=== PATIENT | female | born 1950 | race Caucasian/White ===

== ENCOUNTER → 2017-05-08 | Outpatient (CLI) | payer MEDICARE, OTHER | LOC: GMAH 10:36 | PROVIDERS: ATTEND Family Medicine | DX: E78.2 Mixed hyperlipidemia (principal) ==

== ENCOUNTER → 2017-07-24 | Outpatient (CLI) | payer MEDICARE, OTHER ==
--- NOTE | 2017-07-24 11:29 | US ---
EXAM DESCRIPTION: Limited abdominal sonography CLINICAL HISTORY: 67 years Female, RUQ PAIN COMPARISON: None. TECHNIQUE: Limited Abdominal Ultrasound FINDINGS: PANCREAS: No cyst, mass, or inflammatory changes evident. LIVER: Normal size and appearance without cyst or mass. BILIARY: Normal gallbladder without stones, wall thickening, or edema. Normal bile ducts with the CBD measuring 7 mm, in the upper range of normal without intrahepatic dilation. RT. KIDNEY: The right kidney is 9.9 cm in length without hydronephrosis. Projecting partially exophytically from the mid right kidney is a hypoechoic but solid-appearing 2.9 cm mass. This may represent a dromedary hump but the possibility of a solid small renal neoplasm cannot be excluded. Further evaluation with a CT examination of the abdomen without and with contrast enhancement with attention to the right kidney is recommended VENA CAVA: Normal appearance of the vena cava and visualized portions of the retroperitoneum. IMPRESSION: 1. Abnormal right renal contour laterally involving the mid kidney suggestive of a 2.9 cm solid renal mass. Further evaluation with CT examination without and with contrast enhancement including arterial and venous imaging is recommended. 2. The remainder of the right upper quadrant sonogram is unremarkable with slight prominence of the common bile duct at 7 mm but without intrahepatic dilation or evidence of gallbladder or stone disease. Electronically signed by: Hector Uribe MD 07/24/2017 11:28 AM CDT
== END ==
LOC: US 09:00
PROVIDERS: ATTEND Family Medicine
DX: R10.11 Right upper quadrant pain (principal)

== ENCOUNTER 2017-09-02 08:00 | Day surgery (SDC) | payer MEDICARE, OTHER ==
[2017-09-02] MEDS: PROPARACAINE 0.5% OPHTH SOL 15 ML BTTL ONE ×2 (06:53→08:25)
[~2017-09-02 08:00] MED LIST: LIDOCAINE 1% MPF 5 ML VIAL ONE; MIDAZOLAM INJ 2 MG/2 ML VIAL ONE; TOBRAMYCIN SULF 0.3 % OPHT SOL 1 DROP LEFT_EYE ONE; TROP 1%/CYCLOPEN 1%/PHENYL 2% DROPS ONE
[2017-09-02] MEDS ORDERED: DEXAMETHASONE 0.1% OPHTH SOL 1 DROP LEFT_EYE ONE (08:42)
[2017-09-02] MEDS ORDERED: GENTAMICIN 0.3% OPHTH SOL 1 DROP LEFT_EYE ONE (08:42)
[2017-09-02] MEDS ORDERED: BRIMONIDINE 0.2% OPHTH DROPS LEFT_EYE ONE (08:43)
[2017-09-02 09:00] VITALS: BP 154/82; TEMP 98.4; O2SAT 96
== END 2017-09-02 09:45 | disposition home or self-care (01) ==
LOC: AMB 08:00
PROVIDERS: ATTEND Ophthalmology
DX: H25.12 Age-related nuclear cataract, left eye (principal); I10 Essential (primary) hypertension; E11.36 Type 2 diabetes mellitus with diabetic cataract; E66.9 Obesity, unspecified; G90.511 Complex regional pain syndrome I of right upper limb; Z88.8 Allergy status to other drugs, medicaments and biological substances; Z79.82 Long term (current) use of aspirin; Z79.899 Other long term (current) drug therapy
CPT/HCPCS: 66984; J2250

== ENCOUNTER → 2018-04-24 | Outpatient (CLI) | payer MEDICARE, OTHER ==
--- NOTE | 2018-04-24 17:04 | MRI ---
EXAM DESCRIPTION: Cervical Spine: MRI. CLINICAL HISTORY: RADICULOPATHY COMPARISON: MRI scan cervical spine without contrast 03/22/2015. TECHNIQUE: Multiplanar MRI, multiple sequences, non-contrast High-field. FINDINGS: C3-4: Right posterior 3 mm disc bulge, almost abutting the cord. Right facet arthrosis. Right uncinate spur. Right neural foraminal stenosis. Mild right neural paracentral canal narrowing. Left neural foramen is patent. C4-5: Bilateral facet arthrosis more right than left. Small bilateral uncinate spurs. Bilateral moderate neural foraminal narrowing. Tiny posterior midline bulge with mild canal narrowing. C5-6: Disc desiccation with disc space preserved. Posterior midline disc bulge 3 mm abutting the cord. Mild bilateral facet arthrosis. Small bilateral uncinate spurs. Moderate right neural foraminal narrowing and mild left neural foraminal narrowing. C6-7: Disc desiccation and minimal disc space loss. Posterior 2 mm broad-based disc bulge. Bilateral facets are unremarkable. Left Uncinate spur. Moderate left neural foraminal narrowing. Right neuroforamen patent. Anterior disc bulge and endplate ridging. T1-T2: Minimal disc desiccation and trace anterolisthesis. Tiny posterior broad-based bulge. Mild canal narrowing and bilateral foramina are patent. Normal signal in the remaining discs with no bulging. Disc spaces preserved. Canal and neural foramina are patent. Facets are unremarkable. No scoliosis. Spine is normally kyphotic. No cord compression or cord edema. Atlantoaxial joint is negative. Base of the cerebellar tonsils is above the foramen magnum. Paravertebral soft tissues are unremarkable. Vertebral bodies are not compressed at any level. Normal marrow signal in the remaining vertebral bodies and the posterior elements. IMPRESSION: 1. Disc desiccation at C6-7 with posterior bulge. Moderate left neural foraminal narrowing stable since the prior study. 2. C5-6 disc desiccation and posterior bulging but decreased in size since the prior study. No foraminal narrowing is stable. 3. Bilateral C4-5 neural foraminal narrowing is moderate has progressed on the left since the prior study. 4. Right neural foraminal stenosis at C3-4 has progressed since the prior study. Electronically signed by: Shar Rodriguez MD 04/24/2018 5:03 PM CDT
== END ==
LOC: MRI 10:59
PROVIDERS: ATTEND Anesthesiology Pain Medicine
DX: M50.122 Cervical disc disorder at C5-C6 level with radiculopathy (principal); M48.02 Spinal stenosis, cervical region

== ENCOUNTER 2018-06-12 10:23 | Inpatient (IN) | payer MEDICARE, OTHER ==
--- NOTE | 2018-06-12 10:57 | ED.PDOC ---
History of Present Illness - General Chief Complaint: Respiratory Problem Time Seen by Provider: 06/12/18 10:51 Source: patient Exam Limitations: no limitations - History of Present Illness Initial Comments: SHE HAS BEEN HAVING INTERMITTENT CHEST PAIN AND SHORTNESS OF BREATH FOR THE PAST [address] HARTLEY'S OFFICE YESTERDAY AND WAS GIVEN STEROIDS. SHE HAS ASTHMA, DEPRESSION, THYROID DISEASE, FIBROMYALGIA, DIABETES MELLITUS AMONG OTHERS. THE PAIN IS RATED AT A 8/10, NO RADIATION ASSOCIATED WITH SOB. SHE HAS BEEN USING HER HOME OXYGEN. HAS NO HX OF KNOWN CAD. Timing/Duration: other - ONSET FOUR WEEKS AGO. Severity: moderate Activities at Onset: none Possible Cause: frequent episodes, other - SEEMS TO WORSEN UPON WALKING Improving Factors: immobilization, rest Worsening Factors: nothing Associated Symptoms: chest pain Respiratory Risk Factors: no cause identified Allergies/Adverse Reactions: Allergies Clarithromycin [From Biaxin] Allergy (Mild, Verified 03/25/15 16:14) Other severe cramps Codeine Allergy (Mild, Verified 03/25/15 16:14) Hives Home Medications: Ambulatory Orders Aspirin [Aspirin Adult Low Dose] 81 mg PO DAILY 05/21/15 Atenolol [Tenormin] 25 mg PO DAILY 05/21/15 Fenofibrate Micronized 160 mg PO DAILY 05/21/15 Methadone HCl [Methadone] 10 mg PO DAILY 05/21/15 metFORMIN HCL [Glucophage] 500 mg PO BID 05/21/15 tiZANidine [Zanaflex] 2 mg PO QPM 05/21/15 Esomeprazole Magnesium [Nexium] 40 mg PO DAILY 06/12/18 Lorazepam [Ativan] 1 mg PO BID 06/12/18 Review of Systems - Review of Systems Constitutional: States: no symptoms reported EENTM: States: no symptoms reported Respiratory: States: short of breath Cardiology: States: chest pain Gastrointestinal/Abdominal: States: no symptoms reported Genitourinary: States: no symptoms reported Musculoskeletal: States: no symptoms reported, joint swelling Skin: States: no symptoms reported Neurological: States: no symptoms reported Endocrine: States: no symptoms reported Hematologic/Lymphatic: States: no symptoms reported Past Medical History (General) - Patient Medical History Hx Seizures: No Hx Stroke: No Hx Dementia: No Hx Asthma: Yes Hx of COPD: No Hx Cardiac Disorders: No Hx Congestive Heart Failure: No Hx Pacemaker: No Hx Hypertension: Yes Hx Thyroid Disease: Yes Hx Diabetes: Yes Hx Gastroesophageal Reflux: No Hx Renal Disease: No Hx Cancer: No Hx of HIV: No Hx Hepatitis C: No Hx MRSA: No - Vaccination History Hx Tetanus, Diphtheria Vaccination: Yes Hx Influenza Vaccination: Yes Hx Pneumococcal Vaccination: Yes Immunizations Up to Date: Yes - Social History Hx Tobacco Use: No Hx Chewing Tobacco Use: No Hx Alcohol Use: No Hx Substance Use: No Hx Substance Use Treatment: No Hx Depression: Yes Feels Threatened In Home Enviroment: No Feels Threatened In a Relationship: No Hx Physical Abuse: No Hx Emotional Abuse: No Hx Suspected Abuse: No - Activities of Daily Living Hospice Agency (if applicable):: None - Female History Patient is a Female of Child Bearing Age (10 -59 yrs old): No Patient : No Family Medical History - Family History Mother Family History: No Known Living Status: Still Living Physical Exam - Physical Exam General Appearance: Alert, Restless, Well Hydrated, Well Nourished Eyes, Ears, Nose, Throat Exam: PERRL/EOMI, normal ENT inspection, TMs normal, pharynx normal Neck: non-tender, full range of motion, supple, normal inspection Respiratory: chest non-tender, lungs clear, normal breath sounds, no respiratory distress Cardiovascular/Chest: normal peripheral pulses, regular rate, rhythm, no edema, no gallop, no JVD Gastrointestinal/Abdominal: normal bowel sounds, non tender, soft, no organomegaly, no pulsatile mass Rectal Exam: deferred Extremity: normal range of motion Neurologic: no motor/sensory deficits, alert Skin Exam: normal color Lymphatic: no adenopathy Progress - Progress Progress: 06/12/18 13:51 TROPONIN I X 2 ARE LESS THEN 0.02. I HAVE DISCUSSED THE CASE WITH ZANA COLORADO RN AND WILL PLACE IN OBSERVATION FOR CHEST PAIN. - Results/Orders Results/Orders: HR OF 65, ME INTERVAL OF 150, QRS OF 94, QT INTERVAL OF 422, AXIS OF 59 DEGREES. IMPRESSION; SINUS RHYTHM, THERE ARE SOME INVERTED T WAVES ON THE PRECORDIAL THERESA-LATERALLEADS SUSPICIOUS FOR ANTEROLATERAL ISCHEMIA. THE TRACING IS COMPARED TO ONE DATED 03/25/2015. AT THAT TIME THE PATIENT WAS ON A SINUS RYHTM AT A RATE OF 78. WHEN [id number] NOW THERE A SOME NEW CHANGES THAT WERE NOT THERE. THE INVERTED T WAVES ON THE THERESA-LATERAL LEADS. Departure - Departure Clinical Impression: Chest pain in adult Diabetes mellitus Qualifiers: Diabetes mellitus type: type 2 Diabetes mellitus complication status: without complication Time of Disposition: 13:53 Disposition: Admit Patient Condition: Good Referrals: Enoc Hartley MD [Primary Care Provider] - 1-2 Weeks Home Medications: Ambulatory Orders Aspirin [Aspirin Adult Low Dose] 81 mg PO DAILY 05/21/15 Atenolol [Tenormin] 25 mg PO DAILY 05/21/15 Fenofibrate Micronized 160 mg PO DAILY 05/21/15 Methadone HCl [Methadone] 10 mg PO DAILY 05/21/15 metFORMIN HCL [Glucophage] 500 mg PO BID 05/21/15 tiZANidine [Zanaflex] 2 mg PO QPM 05/21/15 Esomeprazole Magnesium [Nexium] 40 mg PO DAILY 06/12/18 Lorazepam [Ativan] 1 mg PO BID 06/12/18 Decision To Admit - Decistion To Admit Decision to Admit Reason: Admit from ER Decision to Admit Date: 06/12/18 Decision to Admit Time: 13:52
--- NOTE | 2018-06-12 11:32 | RAD ---
Study: Single Frontal View of the Chest. Indication:CHEST PAIN Comparison: March 25, 2015. Impression: Cardiomegaly without failure. Lungs clear. No acute osseous abnormality. Electronically signed by: Fausto Pratt MD 06/12/2018 11:31 AM CDT
--- NOTE | 2018-06-12 14:48 | HP ---
SUPERVISING PHYSICIAN: Ervin Moralez M.D. CHIEF COMPLAINT: Chest pain and shortness of breath. HISTORY OF PRESENT ILLNESS: This is a 68 year-old female patient who presented to the Emergency Room for shortness of breath and some mid sternal intermittent chest pain. She has had it going on for [address] Hartley yesterday for an exacerbation of her asthma and was given a steroid shot as well as a Medrol Dosepak. She took her medication as prescribed and this morning the shortness of breath was so bad that she started having chest pain with it and she could not get out of bed, so she called EMS. She also was quite shaky but she did say she took about 8 puffs on her Albuterol inhaler. In the Emergency Room, her lab was done and she had some mildly elevated WBC of 12,000 with hemoglobin 11.3 and hematocrit 35.2. She had a left shift on her differential. Electrolytes are basically within normal limits with the exception of her glucose was high at 143. She does have a history of diabetes mellitus type 2. Initial 2 troponins were negative. Liver enzymes were also within normal limits. Chest x-ray showed cardiomegaly without failure with lungs that are clear and no acute osseous abnormality. Vital signs showed her to be afebrile and oxygen saturations were 97% on room air. I was called for hospital admission. PAST MEDICAL HISTORY: 1. Diabetes mellitus type 2. 2. Anxiety. 3. Asthma, unspecified. 4. Gastroesophageal reflux disease. 5. Hypertriglyceridemia. 6. Fibromyalgia. 7. Tachycardia. 8. Reflex sympathetic dystrophy. 9. Thyroid disease. PAST SURGICAL HISTORY: 1. Appendectomy. 2. Hysterectomy. 3. Back surgery times 2. 4. Rectocele and cystocele. 5. Tonsillectomy. OUTPATIENT MEDICATIONS: Per the EMR and awaiting verification. ALLERGIES: BIAXIN AND CODEINE. SOCIAL HISTORY: She smoked for approximately 6 months in the '70s. She denies any ETOH or illicit drug use. REVIEW OF SYSTEMS: Negative except as per History of Present Illness. PHYSICAL EXAMINATION: VITAL SIGNS: Temperature 97.8, heart rate 70, blood pressure 156/68, respiratory rate 20, O2 sat is 99% on room air. GENERAL: This is a 68 year-old female patient who is lying in her hospital bed. She is in no acute distress. HEENT: Normocephalic and atraumatic. Pupils are equal and reactive. Oropharynx is clear. NECK: Supple without mass. RESPIRATORY: Essentially clear to auscultation bilaterally. CHEST: There is equal rise and fall of the chest with inspiration and expiration. GASTROINTESTINAL: Abdomen is soft, nondistended, non-tender. Bowel sounds are positive. EXTREMITIES: No cyanosis, clubbing or edema. SKIN: Warm and dry. NEUROLOGIC: She is awake, alert and oriented times three. LABORATORY: Labs and films are as per the history of present illness. ASSESSMENT: 1. Chest pain. 2. Shortness of breath. 3. Exacerbation of asthma. 4. Anxiety. 5. Reflex sympathetic dystrophy. 6. Diabetes mellitus type 2. PLAN: We will place the patient in Observation. I will give her some Solu- Medrol IV and taper it down, and start her Medrol Dosepak tomorrow. I have initiated the chest pain guidelines. I think it most likely is associated with her exacerbation of her asthma, but we will rule out any cardiac involvement. I will restart her home medications. Will continue to monitor her closely and follow as needed. Dr. Moralez is the collaborating physician available for consultation. #[id number] [facility]
[2018-06-12] MEDS ORDERED: SODIUM CHLORIDE 0.9% (FLUSH) 10 ML SYG IV PRN (15:47)
[2018-06-12] MEDS ORDERED: NITROGLYCERIN 0.4 MG 25 EA TAB SL PRN (15:47)
[2018-06-12] MEDS ORDERED: MORPHINE SULFATE INJ 10 MG/ML VIAL IV PRN (15:47)
[2018-06-12] MEDS ORDERED: DEXTROSE 50% 25 GM/50 ML SYG IV PRN (15:51)
[2018-06-12] MEDS ORDERED: GLUCAGON INJ 1 MG VIAL SUBCU PRN (15:51)
[2018-06-12] MEDS ORDERED: IV SET AND CAP CHANGE INJ INJ SCH (16:00)
[2018-06-12] MEDS: INSULIN LISPRO 100 UNITS/ML PEN SUBCU SCH ×2 (17:09→20:59)
[2018-06-12] MEDS ORDERED: LORazepam 1 MG TAB PO PRN (17:28)
[2018-06-12] MEDS ORDERED: methylPREDNISolone SODIUM SUC 125 MG/2 ML VIAL IV ONE (17:32)
[2018-06-12] MEDS ORDERED: LEVALBUTEROL NEBS 1.25 MG/3 ML VIAL NEB PRN (17:37)
[2018-06-12] MEDS: ACETAMINOPHEN 325 MG TAB PO PRN (18:03)
[2018-06-12] MEDS: METHADONE HCL 10 MG TAB PO SCH (20:23)
[2018-06-12] MEDS: LEVALBUTEROL NEBS 1.25 MG/3 ML VIAL NEB SCH (20:25)
[2018-06-12] MEDS: metFORMIN HCL 500 MG TAB PO SCH (20:25)
[2018-06-12] MEDS: tiZANidine 4 MG TAB PO SCH (20:25)
[2018-06-12] MEDS: ENOXAPARIN SODIUM 40 MG/0.4 ML SYG SUBCU SCH (20:25)
[2018-06-12] MEDS: SODIUM CHLORIDE 0.9% (FLUSH) 10 ML SYG IV SCH (20:26)
[2018-06-13] MEDS: PANTOPRAZOLE SODIUM TAB 40 MG PO SCH (06:12)
[2018-06-13] MEDS: INSULIN LISPRO 100 UNITS/ML PEN SUBCU SCH ×4 (07:47→20:54)
[2018-06-13] MEDS: LEVALBUTEROL NEBS 1.25 MG/3 ML VIAL NEB SCH ×4 (08:11→19:58)
[2018-06-13] MEDS ORDERED: DULoxetine HCL 30 MG CAP PO ONE (08:58)
[2018-06-13] MEDS ORDERED: FENOFIBRATE MICRONIZED 160 MG PO SCH (09:00)
[2018-06-13] MEDS ORDERED: NON-FORMULARY MEDICATION 1 EA MIS (Solifenacin Succinate [Vesicare] 10 MG) PO SCH (09:00)
[2018-06-13] MEDS ORDERED: NON-FORMULARY MEDICATION 1 EA MIS (Potassium Chloride [Micro-K] 8 MEQ) PO SCH (09:00)
[2018-06-13] MEDS ORDERED: ASPIRIN TABLET 325 MG TAB PO SCH (09:00)
[2018-06-13] MEDS ORDERED: NON-FORMULARY MEDICATION 1 EA MIS (Duloxetine Hcl [Cymbalta] 60 MG) PO SCH (09:00)
[2018-06-13] MEDS ORDERED: METHADONE HCL 10 MG TAB PO SCH (09:00)
[2018-06-13] MEDS ORDERED: POTASSIUM CHLORIDE 8 MEQ TAB ONE (09:00)
[2018-06-13] MEDS: predniSONE 20 MG TAB PO SCH (09:03)
[2018-06-13] MEDS: tiZANidine 4 MG TAB PO SCH ×3 (09:04→15:13)
[2018-06-13] MEDS: FLUoxetine HCL 20 MG CAP PO SCH (09:04)
[2018-06-13] MEDS: ATENOLOL 25 MG TAB PO SCH (09:04)
[2018-06-13] MEDS: ACETAMINOPHEN 325 MG TAB PO PRN ×2 (09:05→22:00)
[2018-06-13] MEDS: ASPIRIN (ENTERIC COATED) 81 MG TAB PO SCH (09:06)
[2018-06-13] MEDS: SODIUM CHLORIDE 0.9% (FLUSH) 10 ML SYG IV SCH ×2 (09:08→20:54)
--- NOTE | 2018-06-13 09:25 | RAD ---
EXAM DESCRIPTION: Chest,1 View CLINICAL HISTORY: 68 years Female, sob COMPARISON: 06/12/2018 IMPRESSION: The heart is enlarged, without failure. Increasing opacity in the left lung base, consistent with developing atelectasis or pneumonia. Continued follow-up to confirm resolution recommended. Questionable small left pleural effusion. The right lung is clear. No pneumothorax. No acute osseous abnormality. Electronically signed by: Dante Mckay MD 06/13/2018 9:24 AM CDT
[2018-06-13] MEDS ORDERED: LORazepam 1 MG TAB PO PRN (10:13)
[2018-06-13] MEDS: metFORMIN HCL 500 MG TAB PO SCH ×2 (10:24→20:55)
[2018-06-13] MEDS ORDERED: levoFLOXacin 500MG IV 500 MG in PREMIX BAG 1 BAG IVPB SCH (11:00)
--- NOTE | 2018-06-13 11:03 | PN ---
SUPERVISING PHYSICIAN: Ervin Moralez MD DATE: 06/13/18 SUBJECTIVE: Earlier this morning, the patient complained of chest pain. The pain was 5/10. There was no diaphoresis. Vital signs were stable. Cardiac enzymes were done and EKG was done as well as chest x-ray. The cardiac enzymes were negative. The EKG was unchanged. Her chest x-ray does show an increasing opacity in the left lung base that is consistent with atelectasis or pneumonia. That is different from yesterday's chest x-ray. I discussed the findings with her and explained that we would be treating her pneumonia, but that her cardiac enzymes were negative. She continues complaints of some mild shortness of breath, otherwise no cough, nausea or vomiting. She is fairly lethargic from having her Ativan and Zanaflex earlier. OBJECTIVE: VITAL SIGNS: Temperature 98. Pulse 60. Blood pressure 155/69. Respiratory rate 20. O2 saturation 98% on room air. RESPIRATORY: Essentially clear to auscultation bilaterally. It is slightly diminished at the bases. CARDIAC: Regular rate and rhythm. GASTROINTESTINAL: Abdomen is soft, nondistended, nontender. Bowel sounds are positive. EXTREMITIES: No cyanosis, clubbing or edema. NEUROLOGIC: She is lethargic. She awakens fairly easily. She answers simple yes/no questions appropriately. LABORATORY: WBC is improved to 10.4 with stable hemoglobin and hematocrit of 11.2 and 33.8. Cardiac enzymes were negative. Electrolytes were basically within normal limits. Chest x-ray shows increasing opacity in the left lung base consistent with developing atelectasis or pneumonia. Continue followup to confirm resolution recommended. The right lung is clear. All other labs and films have been reviewed via the EMR. ASSESSMENT: 1. Left lower lobe pneumonia, failed outpatient treatment. She had been treated in Dr. Hartley's office for an exacerbation of asthma and chest x-ray shows left lower lobe pneumonia. 2. Chest pain with negative diabetic ketoacidosis enzymes. 3. Exacerbation of asthma, presently on steroid therapy. 4. Anxiety. 5. Reflex sympathetic dystrophy. 6. Diabetes mellitus, type 2. PLAN: The patient will be changed to full admission. I have initiated the pneumonia guidelines and we will start her on Levaquin. We will also do aggressive pulmonary hygiene. I will increase her breathing treatments. She is on oral prednisone at this time and we will continue with that if she has no wheezing. I have ordered AM lab as well as chest x-ray and we will continue to monitor the patient closely and follow as needed. Dr. Moralez is the collaborating physician and available for consultation. #[id number] [facility]
[2018-06-13] MEDS: levoFLOXacin 750MG IV 750 MG in PREMIX BAG 1 BAG IVPB SCH (11:48)
[2018-06-13] MEDS: METHADONE HCL 10 MG TAB PO SCH (20:55)
[2018-06-13] MEDS: ENOXAPARIN SODIUM 40 MG/0.4 ML SYG SUBCU SCH (20:55)
[2018-06-13] MEDS ORDERED: tiZANidine 4 MG TAB PO SCH (21:00)
[2018-06-14] MEDS: PANTOPRAZOLE SODIUM TAB 40 MG PO SCH (06:08)
--- NOTE | 2018-06-14 08:16 | RAD ---
PROCEDURE: Chest,2 Views CLINICAL HISTORY: Pneumonia INDICATION: Same as above COMPARISON: 06/13/2018 TECHNIQUE: PA and and lateral chest radiographs were obtained. FINDINGS: There is no significant interval change in the left basilar infiltrate/atelectasis in the expected location of the lingula of the left lung There are no pneumothoraces or pleural effusions. The pulmonary vascularity is normal The cardiomediastinal silhouette is stable. IMPRESSION: There is no significant interval change in the left basilar infiltrate/atelectasis in the expected location of the lingula of the left lung Electronically signed by: Ruslan Solis MD 06/14/2018 8:15 AM CDT Workstation: [id number]
[2018-06-14] MEDS: INSULIN LISPRO 100 UNITS/ML PEN SUBCU SCH ×2 (08:23→11:28)
[2018-06-14] MEDS: LEVALBUTEROL NEBS 1.25 MG/3 ML VIAL NEB SCH ×2 (08:36→11:48)
[2018-06-14] MEDS: ASPIRIN (ENTERIC COATED) 81 MG TAB PO SCH (08:52)
[2018-06-14] MEDS: FLUoxetine HCL 20 MG CAP PO SCH (08:52)
[2018-06-14] MEDS: metFORMIN HCL 500 MG TAB PO SCH ×2 (08:52→09:37)
[2018-06-14] MEDS: ATENOLOL 25 MG TAB PO SCH (08:53)
[2018-06-14] MEDS: SODIUM CHLORIDE 0.9% (FLUSH) 10 ML SYG IV SCH (08:53)
[2018-06-14] MEDS: predniSONE 20 MG TAB PO SCH (08:53)
[2018-06-14] MEDS ORDERED: DULoxetine HCL 30 MG CAP PO SCH ×2 (09:00→21:00)
[2018-06-14] MEDS ORDERED: POTASSIUM CHLORIDE 8 MEQ TAB PO SCH ×2 (09:00→21:00)
[2018-06-14 09:59] VITALS: BP 159/70; TEMP 97.9
[2018-06-14] MEDS: levoFLOXacin 750MG IV 750 MG in PREMIX BAG 1 BAG IVPB SCH (11:02)
[2018-06-14 12:22] VITALS: O2SAT 100
[2018-06-14] MEDS ORDERED: NON-FORMULARY MEDICATION 1 EA MIS (Solifenacin Succinate [Vesicare] 10 MG) PO SCH (21:00)
[2018-06-14] MEDS ORDERED: FENOFIBRATE MICRONIZED 160 MG PO SCH (21:00)
--- NOTE | 2018-06-15 21:52 | DS ---
SUPERVISING PHYSICIAN: Ervin Moralez M.D. ADMISSION DIAGNOSIS: 1. Chest pain. 2. Shortness of breath. 3. Exacerbation of asthma. 4. Anxiety. 5. Reflex sympathetic dystrophy. 6. Diabetes mellitus type 2. DISCHARGE DIAGNOSIS: 1. Left lower lobe pneumonia failed outpatient treatment with exacerbation of asthma and chest x-ray showing left lower lobe pneumonia. 2. Chest pain with negative cardiac enzymes and normal EKGs with no signs of acute myocardial infarction. 3. Exacerbation of asthma showing improvement with steroids. 4. Anxiety. 5. Reflex sympathetic dystrophy. 6. Diabetes mellitus type 2. REASON FOR HOSPITALIZATION: Ms. Juares is a 68 year-old female that presented to the Emergency Room on 06/12/18 complaining of shortness of breath with some mild sternal intermittent chest pain. She noted that the pain had been going on for 4 weeks. She had recently seen Dr. Hartley on 06/11/18 for exacerbation of her asthma and was given a steroid shot as well as a Medrol Dosepak. She took her medications as prescribed and on the morning of admission was having shortness of breath so bad that she started having chest pains with it and could not get out of bed. At that time, she called EMS. She was also quite shaky but did say she took about 8 puffs of the Albuterol inhaler. In the Emergency Room, her labs were completed and showed a mildly elevated white count of 12,000 with hemoglobin 11, hematocrit 35.2. There was a noted left shift of differential. She has a history of diabetes mellitus type 2 and her initial troponins were negative. Liver enzymes were also within normal limits. Chest x-ray showed cardiomegaly without failure. Lungs were essentially clear with no acute osseous abnormalities. She was afebrile but showing saturations 97% on room air. At that time, she was admitted to the hospital for concerns for acute exacerbation of asthma and COPD having failed outpatient treatment plan with concerns of developing community acquired pneumonia. LABORATORY STUDIES: White count on admission was 12,000, at discharge was 11, 500. Hemoglobin was stable at 1.5, hematocrit 35.7. RBC indices indicated a microcytic hypochromic presentation with a platelet count of 267,000. Differential did show a left shift on admission and it was resolving prior to discharge. Chemistries on admission showed normal electrolytes with BUN 16, creatinine 0.58, calcium 9.5. Liver functions were within normal limits. She had 3 sets of troponin that were all less than 0.02. Normal CK at 102. Lipid panel showed to be within normal limits with triglycerides 142, cholesterol 149 , LDL 93, HDL 37. At discharge, electrolytes were within normal limits. BUN was stable at 15, creatinine 0.59. Blood sugars had been stable between 99 and 244. Again, she had 2 more sets of troponins that were less than 0.02. MICROBIOLOGY: No microbiology specimens were submitted. RADIOLOGY: Initially in the Emergency Department she had a chest x-ray that showed a single view chest per radiology interpretation cardiomegaly without failure. Lungs were clear. No acute osseous abnormalities. She had multiple chest x-rays repeated and on the morning of discharge chest x-ray 2 view chest was showing no significant interval changes and left basilar infiltrate/ atelectasis in the expected location of the lingula of the left lung. HOSPITAL COURSE: Ms. Juares was admitted to the hospital as noted on 06/12/18 for an exacerbation of COPD and asthma with chest pains. Her chest pain workup was negative. This had resolved and was noted that it was reproducible with deep inspiratory effort which was felt to be secondary to her pneumonia. She was found to have a left lower lobe pneumonia and was started on steroids, Levaquin and Xopenex breathing treatments along with pulmonary hygiene. She showed good improvement and on the morning of discharge was showing clinically stable enough to continue with outpatient management with oral medications. PLAN: Ms. Juares was discharged on 06/14/18 with instructions to followup with Dr. Hartley next week as scheduled on 06/18/18 at 10:45. She was to resume her home medications as instructed and take new medications as directed. Her diet at discharge was diabetic. Activity was increase as tolerated. She was told to return to the hospital should any concerning symptoms. Medications at discharge included: 1. Levaquin 500 mg daily for 7 days. 2. Medrol Dosepak 4 mg daily for 6 days, #21. Condition at discharge was stable and improved. #[id number] [facility]
== END 2018-06-14 13:39 | disposition home or self-care (01) | DRG 194 ==
LOC: ER 10:23 → MS 14:47 → OBSVTOIN 06-13 10:34
PROVIDERS: ADMIT Nurse Practitioner Acute Care; ATTEND Nurse Practitioner Family
DX: J18.9 Pneumonia, unspecified organism (principal); G90.50 Complex regional pain syndrome I, unspecified; J45.909 Unspecified asthma, uncomplicated; F41.9 Anxiety disorder, unspecified; E11.9 Type 2 diabetes mellitus without complications; K21.9 Gastro-esophageal reflux disease without esophagitis; E78.1 Pure hyperglyceridemia; M79.7 Fibromyalgia; R07.9 Chest pain, unspecified; F32.9 Major depressive disorder, single episode, unspecified; E07.9 Disorder of thyroid, unspecified; Z88.1 Allergy status to other antibiotic agents; Z88.5 Allergy status to narcotic agent; Z87.891 Personal history of nicotine dependence; Z79.891 Long term (current) use of opiate analgesic; Z79.82 Long term (current) use of aspirin; Z79.84 Long term (current) use of oral hypoglycemic drugs; Z79.899 Other long term (current) drug therapy

== ENCOUNTER 2018-09-25 05:35 | Day surgery (SDC) | payer MEDICARE, OTHER ==
--- NOTE | 2018-09-23 12:33 | RAD ---
EXAM DESCRIPTION: XR CHEST 2 VIEWS CLINICAL HISTORY: Preoperative respiratory evaluation. Z01.811. COMPARISON: 06/14/2018 TECHNIQUE: PA/lateral FINDINGS: Heart size is normal. Similar appearance of left basilar opacity, atelectasis or interstitial infiltrate. No dense alveolar consolidation. The lungs are otherwise clear. No acute bony abnormality. IMPRESSION: No acute cardiopulmonary process. Similar appearance of the left base interstitial infiltrate/scar Electronically signed by: Hector Welch MD 09/23/2018 12:32 PM CDT
[2018-09-25] MEDS ORDERED: raNITIdine HCL INJ 25 MG/ML VIAL ONE (07:00)
[2018-09-25] MEDS ORDERED: DEXAMETHASONE INJ 10 MG/ML VIAL ONE (07:00)
[2018-09-25] MEDS ORDERED: METOCLOPRAMIDE HCL INJ 10 MG/2 ML VIAL ONE (07:00)
[2018-09-25] MEDS ORDERED: PROPOFOL 200 MG/20 ML VIAL IV ONE (07:00)
[2018-09-25] MEDS ORDERED: LIDOCAINE 1% 10 ML VIAL INJ ONE (07:00)
[2018-09-25] MEDS ORDERED: LACTATED RINGERS 1,000 ML ONE ×2 (07:04→10:56)
[2018-09-25] MEDS ORDERED: SODIUM CHL 0.9% 100ML MINI-BAG 100 ML IVPB ONE (07:05)
[2018-09-25] MEDS ORDERED: ceFAZolin SODIUM 1 GM VIAL ONE (07:05)
[2018-09-25] MEDS: LACTATED RINGERS 1,000 ML BAG IV ONE ×2 (07:45→10:58)
[2018-09-25] MEDS ORDERED: fentaNYL CITRATE INJ 50 MCG/ML AMP ONE (08:09)
[2018-09-25] MEDS ORDERED: MIDAZOLAM INJ 2 MG/2 ML VIAL ONE ×2 (08:09→08:18)
[2018-09-25] MEDS ORDERED: BUPIVACAINE 0.25% W/EPI 50 ML VIAL INJ ONE (08:10)
[2018-09-25] MEDS ORDERED: ACETAMINOPHEN IV 1000MG 100 ML ONE (08:20)
[2018-09-25] MEDS ORDERED: KETAMINE HCL 100 MG/ML VIAL ONE (08:35)
--- NOTE | 2018-09-25 10:28 | OP ---
DATE OF PROCEDURE: 09/25/18 PREOPERATIVE DIAGNOSIS: 1. Umbilical hernia POSTOPERATIVE DIAGNOSIS: 1. Umbilical hernia. PROCEDURE: 1. Repair of umbilical hernia with [place] mesh graft. SURGEON: Carlos Rivers MD. PACKAGING MATERIALS INSPECTOR: None. ANESTHESIA: General laryngeal mask anesthesia and local infiltration of 0.25% Marcaine with epinephrine. INDICATION: The patient is a 68-year-old female with a tender mass at her umbilicus which is reducible. The patient was brought to the Surgical Suite today for repair of same after the risks, benefits and alternatives to the procedure were discussed and accepted. FINDINGS: She has omentum which was reducible from the hernia. The defect was approximately 1.5 by 1 cm. No other pathology was identified. PROCEDURE: After adequate general laryngeal mask anesthesia was obtained, the patient was prepped and draped in the usual sterile manner. A surgical time- out was then taken. At this point, an infraumbilical incision was made, first with infiltration of anesthesia and then with a sharp knife. Dissection was carried down through the skin and subcutaneous tissue to the midline fascia using electrocautery and then blunt dissection. When this was done, the hernia was identified. It was dissected free circumferentially using electrocautery and blunt dissection. It was then incised at its base inferiorly and then dissected circumferentially using electrocautery and blunt dissection. When this was done, the omentum was dissected free and the hernia sac was dissected from the umbilicus and reduced below the floor of the canal. Hemostasis was obtained with electrocautery. The wound was irrigated with saline. At this point, the defect was closed with 3 [id number] sutures of #1 PDS which were placed sequentially with careful attention not to catch the underlying tissue or the peritoneum. These were placed sequentially and then tightened and tied sequentially. When this was done, again, the wound was irrigated with saline. Hemostasis was noted to be adequate. The subcutaneous tissue above, below and lateral to the incision was dissected free until it was at least 2 cm of exposed fascia. At this point, the mesh patch approximately 8 by 5 cm and rectangularly shaped was introduced over the repair and sutured circumferentially with interrupted 2-0 Prolene and 2-0 Vicryl sutures. When this was done, again, the wound was irrigated with saline. Hemostasis was noted to be adequate. The umbilicus was then again sutured to the floor and the mesh with a single [id number] suture of 2-0 Prolene. The subcutaneous tissues were reapproximated with interrupted 3-0 Vicryl sutures. The skin edges were approximated with skin stapler. The subcutaneous tissue were re- infiltrated with local anesthesia. Sterile pressure dressing was applied. An abdominal binder was applied. The patient was awakened and taken to the Recovery Room in good and stable condition. Estimated blood loss was less than 50 mL. All sponge, needle and instrument counts were correct. #[id number] [facility]
[2018-09-25] MEDS: HYDROmorphone HCL INJ 2 MG/ML VIAL ONE ×2 (10:46→11:00)
[2018-09-25 11:32] VITALS: O2SAT 95
[2018-09-25 13:46] VITALS: BP 162/75; TEMP 96.7
== END 2018-09-25 12:10 | disposition home or self-care (01) ==
LOC: AMB 05:35
PROVIDERS: ATTEND Surgery
DX: K42.9 Umbilical hernia without obstruction or gangrene (principal); E11.9 Type 2 diabetes mellitus without complications; F41.9 Anxiety disorder, unspecified; J45.909 Unspecified asthma, uncomplicated; I25.10 Atherosclerotic heart disease of native coronary artery without angina pectoris; I10 Essential (primary) hypertension; K21.9 Gastro-esophageal reflux disease without esophagitis; E78.2 Mixed hyperlipidemia; G89.29 Other chronic pain; E66.9 Obesity, unspecified; Z87.891 Personal history of nicotine dependence; Z88.5 Allergy status to narcotic agent; Z88.8 Allergy status to other drugs, medicaments and biological substances; Z79.82 Long term (current) use of aspirin; Z79.899 Other long term (current) drug therapy
CPT/HCPCS: 00830; 36416; 49585; 71046; 80048; 81001; 82948; 85025; 93005; C1781; J0690; J1100; J1170; J2250; J2765; J2780; J3010; J3490; J7050; J7120

== ENCOUNTER → 2018-10-11 | Outpatient (CLI) | payer MEDICARE, OTHER | LOC: LAB.O 13:05 | PROVIDERS: ATTEND Nurse Practitioner Family | DX: E03.9 Hypothyroidism, unspecified (principal); R06.02 Shortness of breath ==

== ENCOUNTER → 2018-11-03 | Outpatient (CLI) | payer MEDICARE, OTHER | LOC: LAB.O 08:46 | PROVIDERS: ATTEND Nurse Practitioner Family | DX: I10 Essential (primary) hypertension (principal); E11.9 Type 2 diabetes mellitus without complications; E03.9 Hypothyroidism, unspecified ==

== ENCOUNTER 2018-12-17 22:03 | Emergency (ER) | payer MEDICARE, OTHER ==
--- NOTE | 2018-12-17 22:24 | ED.PDOC ---
History of Present Illness - General Chief Complaint: Abdominal Pain Stated Complaint: lower abdomen pain since 1900 Time Seen by Provider: 12/17/18 22:12 Information Source: patient Exam Limitations: no limitations - History of Present Illness Initial Comments: Evelyn Juares 68 y/o female with history of umbilical hernia repair 3 months ago stated that she had sharp burning pain which had been constant since 1900H today.Had same symptoms intermittently after the surgery and was treated for surgical wound infection which improved and had also seen Dr. Rivers and was told that some stitches might have been loose.No N/V,has regular bm,no dysuria but stated slipped and fell while boarding her car because of the pain. Abdominal Pain Onset Location: other - lower abdomen Pain Radiation: no radiation Quality: sharpness Timing/Duration: 1-3 hours Improving Factors: nothing Worsening Factors: rest Associated Symptoms: denies symptoms, other - see hpi Review of Systems - Review of Systems Constitutional: States: no symptoms reported EENTM: States: no symptoms reported Respiratory: States: no symptoms reported Cardiology: States: no symptoms reported Gastrointestinal/Abdominal: States: no symptoms reported Genitourinary: States: no symptoms reported Musculoskeletal: States: other - fbromyalgia Neurological: States: other - RSD Past Medical History (General) - Patient Medical History Hx Seizures: No Hx Stroke: No Hx Dementia: No Hx Asthma: Yes Hx of COPD: No Hx Cardiac Disorders: No Hx Congestive Heart Failure: No Hx Pacemaker: No Hx Hypertension: No Hx Thyroid Disease: Yes 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 Hx Gastroesophageal Reflux: No Hx Renal Disease: No Hx Cancer: No Hx of HIV: No Hx Hepatitis C: No Hx MRSA: No Surgical History: appendectomy, tonsillectomy, other - umbilical hernia repair,cystorectocele surgery,back surgery,cataract - Vaccination History Hx Tetanus, Diphtheria Vaccination: Yes Hx Influenza Vaccination: Yes Hx Pneumococcal Vaccination: Yes - Social History Hx Tobacco Use: No Hx Chewing Tobacco Use: No Hx Alcohol Use: No Hx Substance Use: No Hx Substance Use Treatment: No Hx Depression: Yes Hx Physical Abuse: No Hx Emotional Abuse: No Hx Suspected Abuse: No - Female History Patient : No Family Medical History - Family History Mother Family History: No Known Living Status: Still Living Hx Cardiac Disease: Yes - brother Physical Exam - Physical Exam General Appearance: Alert, Comfortable, No apparent distress Eyes, Ears, Nose, Throat Exam: normal ENT inspection Neck: non-tender, supple, normal inspection Respiratory: lungs clear, normal breath sounds, no respiratory distress Cardiovascular/Chest: normal peripheral pulses, regular rate, rhythm, no murmur Peripheral Pulses: No deficit Gastrointestinal/Abdominal: soft, no organomegaly, tenderness - lower abdomen,no peritoneal signs,sutures intact Back Exam: no CVA tenderness, no vertebral tenderness Extremity: normal inspection, no pedal edema, no calf tenderness Neurologic: alert, oriented x 3 Skin Exam: normal color, warm/dry Progress - Progress Progress: 12/17/18 23:21 Vital Signs - 8 hr 12/17/18 22:10 Temperature 99.3 F Pulse Rate [ 73 monitor] Respiratory 20 Rate Blood Pressure 196/76 [Left Arm] O2 Sat by Pulse 99 Oximetry - Results/Orders Results/Orders: 12/17/18 22:23 IV Care:Saline Lock per Protoc QSHIFT 12/17/18 22:56 URINE CULTURE W/COLONY COUNT Stat Laboratory Results - last 24 hr 12/17/18 12/17/18 22:38 22:56 WBC 7.3 RBC 4.69 Hgb 12.0 Hct 37.3 MCV 79.6 L MCH 25.6 L MCHC 32.2 L RDW 14.3 Plt Count 277 MPV 8.4 Absolute Neuts (auto) 3.80 Absolute Lymphs (auto) 2.70 Absolute Monos (auto) 0.50 Absolute Eos (auto) 0.20 Absolute Basos (auto) 0.00 Neutrophils % 52.0 Lymphocytes % 37.5 Monocytes % 6.7 Eosinophils % 3.4 Basophils % 0.4 PT 10.4 INR 1.04 PTT (SP) 24.9 Sodium 135 Potassium 3.7 Chloride 102 Carbon Dioxide 25 Anion Gap 11.7 L BUN 20 H Creatinine 0.57 L BUN/Creatinine Ratio 35.1 H Random Glucose 135 H Serum Osmolality 274.7 L Calcium 9.2 Magnesium 1.9 Total Bilirubin 0.2 Direct Bilirubin < 0.1 Indirect Bilirubin 0.1 L AST 26 ALT 22 Alkaline Phosphatase 83 Creatine Kinase 53 CK-MB (CK-2) 1.7 CK-MB (CK-2) % Not Reportable Troponin I < 0.02 Serum Total Protein 7.3 Albumin 4.1 Lipase 30 Urine Color Yellow Urine Appearance Clear Urine pH 7.0 Ur Specific [place] 1.015 Urine Protein Negative Urine Glucose (UA) Negative Urine Ketones Negative Urine Blood Negative Urine Nitrite Negative Urine Bilirubin Negative Urine Urobilinogen 1.0 Ur Leukocyte Esterase Small H Urine RBC 1-3 Urine WBC 5-10 H Ur Epithelial Cells 3-5 Urine Bacteria 1+ Discuss test result with patient no abnormalities noted on her Ct Abd/Pelvis and including blood works but mentioned about mild uti which does not cause her present symptoms. Departure - Departure Clinical Impression: History of umbilical hernia repair Abdominal pain Qualifiers: Abdominal location: lower abdomen, unspecified Qualified Code(s): R10.30 - Lower abdominal pain, unspecified Urinary tract infection Qualifiers: Urinary tract infection type: site unspecified Hematuria presence: without hematuria Qualified Code(s): N39.0 - Urinary tract infection, site not specified Time of Disposition: 00:14 Disposition: Discharge to Home or Self Care Departure Forms: ED Discharge - Pt. Copy, Patient Portal Self Enrollment Instructions: DI for Abdominal Pain-Adult Referrals: Enoc Hartley MD [Primary Care Provider] - 1-2 Weeks Prescriptions: Nitrofurantoin Monohydrate Mac [Macrobid] 100 mg PO BID 5 Days #10 capsule Home Medications: Ambulatory Orders Aspirin [Aspirin Adult Low Dose] 81 mg PO BEDTIME 05/21/15 Atenolol [Tenormin] 25 mg PO BEDTIME 05/21/15 Fenofibrate Micronized 160 mg PO BEDTIME 05/21/15 Methadone HCl [Methadone] 10 mg PO BEDTIME 05/21/15 metFORMIN HCL [Glucophage] 500 mg PO BID 05/21/15 tiZANidine [Zanaflex] 2 mg PO QID PRN 05/21/15 Duloxetine HCl [Cymbalta] 60 mg PO DAILY 06/12/18 Fluoxetine HCl [PROzac] 20 mg PO DAILY 06/12/18 Lorazepam [Ativan] 1 mg PO BID PRN 06/12/18 Potassium Chloride [Micro-K] 8 meq PO BEDTIME 06/12/18 Solifenacin Succinate [Vesicare] 10 mg PO BEDTIME 06/12/18 Esomeprazole Magnesium [Nexium] 40 mg PO AC 12/17/18 Phentermine HCl 37.5 mg PO DAILY 12/17/18 Nitrofurantoin Monohydrate Mac [Macrobid] 100 mg PO BID 5 Days #10 capsule 12/18/18 Additional Instructions: Follow up with primary Md for recheck ;return to ER as needed;continue with all home medications
[2018-12-17 22:35] VITALS: TEMP 99.3; O2SAT 99
--- NOTE | 2018-12-17 23:54 | CT ---
EXAM DESCRIPTION: Abdoment/Pelvis w/o Contrast CLINICAL HISTORY: 68 years Female acute mid to lower abdominal pain COMPARISON: None. TECHNIQUE: Contiguous axial images obtained through the abdomen and pelvis without IV contrast. Reformatted images obtained. This exam was performed according to our department optimization program which includes automated exposure control, adjustment of the mA and/or kv according to patient size and/or use of iterative reconstruction technique. FINDINGS: Scarring/atelectasis in the lower lungs. The liver appears unremarkable. The spleen and pancreas appear unremarkable. No adrenal masses. The kidneys appear unremarkable. No hydronephrosis or definite ureteral calculi. The gallbladder is visualized. Mild atherosclerotic calcifications. No aneurysmal dilatation of the aorta. No bowel obstruction. The appendix is not visualized. No significant free pelvic fluid. Changes from previous hysterectomy. Degenerative changes in the lumbar spine with spinal stenosis at L3-4 and likely L4-5. There are postsurgical changes at L5-S1. IMPRESSION: No acute intra-abdominal abnormality is identified. Degenerative changes in the spine with spinal stenosis in the lower lumbar spine. Electronically signed by: Brian Camarillo MD 12/17/2018 11:52 PM [facility]
[2018-12-18] MEDS ORDERED: NITROFURANTOIN MONOHYDRATE MAC 100 MG CAP PO ONE (00:09)
[2018-12-18 00:18] VITALS: BP 168/70
== END 2018-12-18 00:30 | disposition home or self-care (01) ==
LOC: ER 22:03
DX: N39.0 Urinary tract infection, site not specified (principal); R10.30 Lower abdominal pain, unspecified; J45.909 Unspecified asthma, uncomplicated; E07.9 Disorder of thyroid, unspecified; E11.9 Type 2 diabetes mellitus without complications; F32.9 Major depressive disorder, single episode, unspecified; Z87.19 Personal history of other diseases of the digestive system; Z90.49 Acquired absence of other specified parts of digestive tract; Z98.890 Other specified postprocedural states

== ENCOUNTER → 2019-02-17 | Outpatient (CLI) | payer MEDICARE, OTHER | LOC: GMAH 11:11 | PROVIDERS: ATTEND Family Medicine | DX: E03.9 Hypothyroidism, unspecified (principal); E11.9 Type 2 diabetes mellitus without complications; I10 Essential (primary) hypertension; E78.2 Mixed hyperlipidemia; R53.83 Other fatigue ==

== ENCOUNTER → 2019-03-11 | Outpatient (CLI) | payer MEDICARE, OTHER ==
--- NOTE | 2019-03-12 15:20 | RAD ---
EXAM DESCRIPTION: Abdomen Flat Upright CLINICAL HISTORY: RLQ ABD PAIN COMPARISON: CT the abdomen pelvis dated 17 December 2018 TECHNIQUE: AP supine and upright views the abdomen FINDINGS: Pedicle screw and interbody fusion is observed at the L5-S1 level. There is mild convexity lumbar spine to the right. The bowel gas pattern is unremarkable. No organomegaly is seen. No pathologic calcifications are observed. No free air is detected. IMPRESSION: Unremarkable abdomen. Electronically signed by: Jason Noland MD 03/12/2019 3:17 PM CDT
== END ==
LOC: RAD 11:57
PROVIDERS: ATTEND Surgery
DX: R10.13 Epigastric pain (principal)

== ENCOUNTER → 2020-04-13 | Outpatient (CLI) | payer MEDICARE, OTHER ==
--- NOTE | 2020-04-14 09:31 | MRI ---
EXAM DESCRIPTION: Lumbar Spine w/o Contrast : Magnetic Resonance Imaging. CLINICAL HISTORY: POSTLAMINECTOMY SYNDROME COMPARISON: Noncontrast MRI scan lumbar spine October 2015. TECHNIQUE: Multiplanar, multiple standard sequences, non contrast MRI, lumbar spine. FINDINGS: L5-S1: The disc is well visualized on axial T2 series 501, image 3. Bone interbody fusion which is almost completely ossified. Bilateral L5 and S1 transpedicular screws with unilateral connecting rods. Posterior decompression. Minimal bony narrowing of the left subarticular recess abutting the left S1 nerve. No fluid collection or abnormal marrow signal around the hardware, taking into account metallic artifact. Bony abutment of the left L5 nerve with moderate narrowing of the foramen. Mild narrowing of the right foramen. Fusion of the left facet joint. No interval change from the prior study. L4-L5: Disc desiccation and disc space loss. Anterior erosion of the L5 endplate. This is abutting the tip of the left L5 screw. Anterior endplate reactive changes. Posterior broad-based disc bulge with central 5 mm protrusion. Moderate degenerative hypertrophy of the bilateral facet joints in the posterior flavum ligaments (canal elements). AP canal diameter 4.5 mm with increased fat in the posterior epidural space abutting the flavum ligaments. No change from the prior study. Bilateral subarticular recess stenosis as progressed since the prior study. Mild to moderate narrowing of the left foramen and mild narrowing of the right foramen. L3-L4: Disc desiccation and minimal disc space loss. 2 mm grade 1 anterolisthesis. Posterior disc bulge. Moderate degenerative hypertrophy of the canal elements. AP canal diameter 6.8 mm. Mild to moderate right foraminal narrowing and mild left foraminal narrowing. No change from the prior study. L2-L3: Disc desiccation and minimal disc space loss to the left of midline. Schmorl's node superior L3 endplate. Disc bulges slightly more to the left of midline abutting the left subarticular recess which is nearly stenotic. Degenerative hypertrophy of the canal elements. AP canal diameter 9 mm. Mild narrowing of the right foramen. Stable since the prior study. L1-L2: Decreased disc space and decreased signal in the disc. Anterior endplate ridging and bulging disc. Minimal posterior bulging. Degenerative hypertrophy of the canal elements with AP canal diameter 10 mm. Mild bilateral foraminal narrowing. No interval change from the prior study. T12-L1: Disc desiccation with minimal concavities in the endplates with disc space preserved. Tiny posterior bulge. Bilateral foramina are patent. Minimal hypertrophy of the canal elements more on the right. 11 mm. Stable since the prior study. Mid lumbar mild dextroscoliosis. Paravertebral soft tissues paravertebral muscle atrophy.. Distal cord normal signal and caliber. Otherwise normal marrow signal in the remaining vertebral bodies and the posterior elements. Vertebral bodies are not compressed at any level. IMPRESSION: 1. Multiple levels of disc desiccation and disc space loss, and degenerative hypertrophy of the posterior flavum ligaments and facet joints. Prior posterior interbody fusion L5-S1 with almost complete interbody osseous fusion. Hardware stable with no complications. 2. Bilateral subarticular recess stenosis at L4-L5 has progressed since the prior study abutting the bilateral L5 nerves. Severe central canal stenosis is stable. Severe central canal stenosis at L3-L4 and grade 1 anterolisthesis is stable. No interval change in mild central canal stenosis at L2-3 and borderline mild central canal stenosis at L1-2. Electronically signed by: Shar Rodriguez MD 04/14/2020 9:29 AM CDT
== END ==
LOC: MRI 09:00
PROVIDERS: ATTEND Anesthesiology Pain Medicine
DX: M96.1 Postlaminectomy syndrome, not elsewhere classified (principal); M51.36 Other intervertebral disc degeneration, lumbar region; M24.28 Disorder of ligament, vertebrae; M43.16 Spondylolisthesis, lumbar region; M46.96 Unspecified inflammatory spondylopathy, lumbar region; Z98.1 Arthrodesis status; E03.9 Hypothyroidism, unspecified; E11.9 Type 2 diabetes mellitus without complications